=== PATIENT | male | born 1940 | race Caucasian/White ===

== ENCOUNTER 2017-08-01 12:28 | Inpatient (IN) | payer MEDICARE ==
[~2017-08-01] VITALS: Ht 190.5 cm; Wt 130.6 kg
[~2017-08-01 12:28] MED LIST changes: -AZIT250T PO; -CEFP200T PO; -TRAZ-90 PO
[2017-08-01 13:50] VITALS: BP 121/66
[2017-08-01] MEDS ORDERED: TRAZ-90 PO (14:38)
[2017-08-01 15:50] VITALS: BP 120/68
[2017-08-01 19:19] LABS: INFLUENZA A PATIENT NEGATIVE (NEGATIVE); INFLUENZA B PATIENT NEGATIVE (NEGATIVE)
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
[2017-08-01] MEDS ORDERED: ACETAMINOPHEN 325 MG TABLET PO PRN (19:45)
[2017-08-01] MEDS ORDERED: oxyCODONE/APAP 10/325 1 TAB TABLET PO PRN (19:45)
[2017-08-01] MEDS: cefTRIAXone IV Push 1 GM VIAL. IVP SCH (19:48)
[2017-08-01 19:58] VITALS: BP 115/71
[2017-08-01] MEDS: SIMVASTATIN 40 MG TABLET. PO SCH (20:34)
[2017-08-01] MEDS: diazePAM 5 MG TABLET PO SCH (20:34)
[2017-08-01] MEDS: OMEGA-3 FATTY ACIDS/FISH OIL 1,000 MG CAPSULE. PO SCH (20:34)
[2017-08-01] MEDS: LACTOBACILLUS RHAMNOSUS GG 1 CAPSULE. PO SCH (20:34)
[2017-08-01] MEDS: traZODone 100 MG TABLET. PO SCH (20:34)
[2017-08-01 21:07] LABS: BASO % 1 % (0-3); EOS # 0.2 x10^3/uL (0.0-0.7); EOS % 3 % (0-3); HEMATOCRIT 41.8 % (39.0-53.0); HEMOGLOBIN 14.3 g/dL (13.0-17.5); LYMPH # 1.4 x10^3/uL (1.0-4.8); LYMPH % 20 % (24-48); MEAN CORPUSCULAR HEMOGLOBIN 30 pg (25-35); MEAN CORPUSCULAR HGB CONC 34 g/dL (31-37); MEAN CORPUSCULAR VOLUME 88 fL (79-100); MONO # 0.9 x10^3/uL (0.0-1.1); MONO % 13 % (0-9); NEUT # 4.3 x10^3uL (1.8-7.7); NEUT % 63 % (31-73); PLATELET COUNT 144 x10^3/uL (140-400); RED BLOOD COUNT 4.77 x10^6/uL (4.30-5.70); RED CELL DISTRIBUTION WIDTH 14.2 % (11.5-14.5); WHITE BLOOD COUNT 6.7 x10^3/uL (4.0-11.0)
[2017-08-01 21:16] LABS: ALBUMIN 3.7 g/dL (3.4-5.0); ALBUMIN/GLOBULIN RATIO 0.9 (1.0-1.7); CALCIUM 9.1 mg/dL (8.5-10.1); CREATININE 0.9 mg/dL (0.7-1.3); GFR 82.3; POTASSIUM 3.7 mmol/L (3.5-5.1); TOTAL BILIRUBIN 0.2 mg/dL (0.2-1.0); TOTAL PROTEIN 7.9 g/dL (6.4-8.2)
[2017-08-01 22:58] VITALS: BP 134/62
[2017-08-02] MEDS: IPRATRPIUM/ALBUTEROL 0.5/2.5MG 3 ML NEBU. NEB SCH ×5 (00:16→20:00)
[2017-08-02 05:56] VITALS: BP 133/64
[2017-08-02 07:31] LABS: BASO % 0 % (0-3); EOS # 0.1 x10^3/uL (0.0-0.7); EOS % 2 % (0-3); HEMATOCRIT 41.8 % (39.0-53.0); LYMPH # 1.3 x10^3/uL (1.0-4.8); LYMPH % 20 % (24-48); MEAN CORPUSCULAR HEMOGLOBIN 30 pg (25-35); MEAN CORPUSCULAR HGB CONC 34 g/dL (31-37); MEAN CORPUSCULAR VOLUME 88 fL (79-100); MONO # 0.8 x10^3/uL (0.0-1.1); MONO % 12 % (0-9); NEUT # 4.3 x10^3uL (1.8-7.7); NEUT % 66 % (31-73); PLATELET COUNT 143 x10^3/uL (140-400); RED BLOOD COUNT 4.74 x10^6/uL (4.30-5.70); RED CELL DISTRIBUTION WIDTH 14.3 % (11.5-14.5); WHITE BLOOD COUNT 6.6 x10^3/uL (4.0-11.0)
[2017-08-02 07:53] LABS: ALBUMIN 3.6 g/dL (3.4-5.0); ALBUMIN/GLOBULIN RATIO 0.9 (1.0-1.7); CREATININE 0.8 mg/dL (0.7-1.3); GFR 94.2; POTASSIUM 3.5 mmol/L (3.5-5.1); TOTAL BILIRUBIN 0.3 mg/dL (0.2-1.0); TOTAL PROTEIN 7.5 g/dL (6.4-8.2)
[2017-08-02] MEDS: LACTOBACILLUS RHAMNOSUS GG 1 CAPSULE. PO SCH ×2 (08:16→20:17)
[2017-08-02] MEDS: OMEGA-3 FATTY ACIDS/FISH OIL 1,000 MG CAPSULE. PO SCH ×2 (08:16→20:17)
[2017-08-02] MEDS: GEMFIBROZIL 600 MG TABLET. PO SCH ×2 (08:16→18:21)
[2017-08-02] MEDS: diazePAM 5 MG TABLET PO SCH ×3 (08:16→20:17)
[2017-08-02] MEDS: VERAPAMIL SR 120 MG TABLET.ER. PO SCH (08:17)
[2017-08-02] MEDS: LISINOPRIL 20 MG TABLET PO SCH (08:20)
[2017-08-02] MEDS: hydroCHLOROthiazide 25 MG TABLET PO SCH (08:20)
[2017-08-02] MEDS: AZITHROMYCIN 250 MG TABLET. PO SCH (08:20)
[2017-08-02] MEDS: ENOXAPARIN 40 MG/0.4 ML DISP.SYRIN. SQ SCH (08:21)
[2017-08-02 11:00] VITALS: BP 114/54
[2017-08-02 15:25] VITALS: BP 103/56
[2017-08-02 19:43] VITALS: BP 118/60
[2017-08-02] MEDS: cefTRIAXone IV Push 1 GM VIAL. IVP SCH (20:16)
[2017-08-02] MEDS: SIMVASTATIN 40 MG TABLET. PO SCH (20:16)
[2017-08-02] MEDS: traZODone 100 MG TABLET. PO SCH (20:17)
[2017-08-02 22:40] LABS: FECAL OB PT NEGATIVE (NEG)
[2017-08-02 23:07] VITALS: BP 132/66
[2017-08-03] MEDS: IPRATRPIUM/ALBUTEROL 0.5/2.5MG 3 ML NEBU. NEB SCH ×3 (05:55→15:31)
[2017-08-03 06:04] VITALS: BP 118/81
--- NOTE | 2017-08-03 07:13 | PN ---
DATE: 08/02/2017 SUBJECTIVE: The patient was sitting on the edge of the bed, eating his dinner comfortably in no apparent distress. He stated that he is feeling generally better. His cough is much less and he does not have any shortness of breath or chest tightness. Nursing staff did not voice any concern. OBJECTIVE: GENERAL: When we examined him, he looked well and was clearly in no apparent respiratory distress. There is no pallor, jaundice, cyanosis, or thyromegaly. No jugular venous distension. No limb edema. VITAL SIGNS: Her heart rate was 71, blood pressure was 103/56, temperature was 97.8, respiratory rate 20, and oxygen saturation was 93% on 2 liters of oxygen by nasal cannula. HEAD, EYES, EARS, NOSE AND THROAT: Showed normocephalic, atraumatic. NECK: Supple. HEART: Showed normal first and second heart sounds with no gallop, rub or murmur. CHEST: Clear to auscultation. No crepitation or rhonchi. ABDOMEN: Distended, soft, nontender. NEUROLOGIC: He is awake, alert, responding appropriately. All cranial nerves intact. He moves upper extremities without difficulty. Has right below knee amputation. However, he has a prosthesis. LABORATORY DATA: Showed that his influenza A and B were negative. His white cell count was 6600, hemoglobin 14, hematocrit 41, MCV 88 and platelet count of 143,000 with normal manual differential. His chemistry showed a serum sodium 139, potassium 3.5, chloride 98, bicarbonate 35, anion gap of 6, BUN 17, creatinine 0.8, estimated GFR was 94 mL per minute, his glucose 131, calcium was 9. Total bilirubin, AST, ALT, alkaline phosphatase were normal. Total protein was 7.5, albumin 3.6. His chest x-ray showed that he has linear opacities in the left lung base, has mild hyperinflation. PLAN: My plan is to continue with oral Zithromax and IV Zosyn. Continue with DVT prophylaxis. Continue with his other medication. I will repeat his labs tomorrow and if he remains stable, he can be discharged home to continue treatment as an outpatient using oral antibiotic. ASSESSMENT: 1. Community-acquired pneumonia. 2. Acute hypoxic respiratory failure, currently on 2 liters of oxygen, maintaining his oxygen saturation at 93% on 2 liters of oxygen. 3. Hypertension. 4. Hyperlipidemia. 5. Chronic obstructive pulmonary disease. 6. Morbid obesity. 7. Obstructive sleep apnea on CPAP. 8. Anxiety and depression. LISE ROMO MD DR: SHIVA/cody JOB#: [id number] / [id number]
[2017-08-03] MEDS: GEMFIBROZIL 600 MG TABLET. PO SCH (08:27)
[2017-08-03] MEDS: diazePAM 5 MG TABLET PO SCH ×2 (08:27→14:28)
[2017-08-03] MEDS: LISINOPRIL 20 MG TABLET PO SCH (08:28)
[2017-08-03] MEDS: AZITHROMYCIN 250 MG TABLET. PO SCH (08:28)
[2017-08-03] MEDS: hydroCHLOROthiazide 25 MG TABLET PO SCH (08:28)
[2017-08-03] MEDS: OMEGA-3 FATTY ACIDS/FISH OIL 1,000 MG CAPSULE. PO SCH (08:29)
[2017-08-03] MEDS: LACTOBACILLUS RHAMNOSUS GG 1 CAPSULE. PO SCH (08:29)
[2017-08-03] MEDS: ENOXAPARIN 40 MG/0.4 ML DISP.SYRIN. SQ SCH (08:33)
[2017-08-03 09:24] VITALS: BP 118/81
[2017-08-03] MEDS: VERAPAMIL SR 120 MG TABLET.ER. PO SCH (09:24)
[2017-08-03] MEDS ORDERED: CEFP200T PO (15:01)
[2017-08-03] MEDS ORDERED: AZIT250T PO (15:07)
--- NOTE | 2017-08-03 23:58 | DS ---
DATE OF DISCHARGE: 08/03/2017 HOSPITAL COURSE: The patient is a 77-year-old male patient who was admitted with a complaint of cough with greenish yellow sputum, shortness of breath. Her chest x-ray, which showed he has what seemed to be infiltrate in left lung base and was admitted for treatment of community-acquired pneumonia and COPD exacerbation as well as acute hypoxic respiratory failure. On arrival, his oxygen saturation was only 80% on room air. We did start him on IV Rocephin and oral Zithromax, and the patient remained stable throughout his stay in the hospital, the decision was made to discharge him home with home health, and to continue treatment on oral Vantin as well as Zithromax. He developed an episode of diarrhea and we sent stool for C. diff, although the nursing staff did not feel that it is, and we will discharge him home with home health with PT, OT and retirement. PHYSICAL EXAMINATION: GENERAL: When I examined him this afternoon, he was sitting on the edge of the bed comfortably, in no apparent distress. He is extremely anxious, tearful and fearful, but there was no pallor, jaundice, cyanosis, or thyromegaly. No jugular venous distension. No limb edema. VITAL SIGNS: His heart rate was 76, blood pressure 118/81, temperature was 97.8, respiratory rate 20, and oxygen saturation was 93% on 2 liters of oxygen. HEAD, EYES, EARS, NOSE AND THROAT: Normocephalic, atraumatic. NECK: Supple. HEART: Showed normal first and second heart sounds. No gallop, rub or murmur. CHEST: Clear to auscultation. No crepitation or rhonchi. ABDOMEN: Distended, soft, nontender. No guarding or rigidity. No organomegaly. All hernial orifices intact. Bowel sounds normal. NEUROLOGIC: He is awake, alert, responding appropriately. All the cranial nerves intact. He moves all extremities, upper extremities without difficulty, has right below knee amputation, has a prosthesis. LABORATORY DATA: Showed a white cell count of 6600, hemoglobin 14, hematocrit 42, MCV 88 and platelet count of 143,000. His chemistry showed a serum sodium 139, potassium 3.5, chloride 98, bicarbonate 35, anion gap of 6, BUN 17, creatinine 0.8, estimated GFR was 94 mL per minute. His glucose was 131, calcium was 9. Total bilirubin, AST, ALT, alkaline phosphatase were normal. Total protein 7.5, albumin 3.6. DISCHARGE MEDICATIONS: He will be discharged home to continue on following medication: Zithromax 500 mg 1 tablet once a day for 5 more days and cefpodoxime 200 mg twice a day for 7 days. He should continue on all his other medication including diazepam 5 mg 3 times a day, fish oil 1200 mg capsules twice a day, gemfibrozil 600 mg twice a day, hydrochlorothiazide 50 mg once a day, oxycodone/APAP 10/325 one tablet every 6 hours, simvastatin 40 mg at bedtime, trandolapril plus verapamil extended release 4/240 one tablet once a day, trazodone 100 mg at bedtime. FINAL DISCHARGE DIAGNOSES: 1. Community-acquired pneumonia. 2. Chronic obstructive pulmonary disease exacerbation. 3. Acute hypoxic respiratory failure. 4. Hypertension. 5. Hyperlipidemia. 6. Morbid obesity. 7. Obstructive sleep apnea on CPAP. 8. Severe anxiety and depression for which the patient was informed that he probably needs to make an appointment with a psychiatrist for adjustment of his medication. LISE ROMO MD DR: SHIVA/cody JOB#: [id number] / [id number]
== END 2017-08-03 15:40 | disposition home health service (06) | DRG 189 ==
LOC: 1 SOUTH 13:25
PROVIDERS: ADMIT Internal Medicine; ATTEND Internal Medicine
DX: J96.01 Acute respiratory failure with hypoxia (principal); J18.9 Pneumonia, unspecified organism; J44.0 Chronic obstructive pulmonary disease with (acute) lower respiratory infection; E66.01 Morbid (severe) obesity due to excess calories; J44.1 Chronic obstructive pulmonary disease with (acute) exacerbation; E78.5 Hyperlipidemia, unspecified; G47.33 Obstructive sleep apnea (adult) (pediatric); I10 Essential (primary) hypertension; F41.9 Anxiety disorder, unspecified; F32.9 Major depressive disorder, single episode, unspecified; R19.7 Diarrhea, unspecified; Z90.49 Acquired absence of other specified parts of digestive tract; Z89.511 Acquired absence of right leg below knee; Z85.828 Personal history of other malignant neoplasm of skin; Z79.899 Other long term (current) drug therapy; Z79.82 Long term (current) use of aspirin; Z82.49 Family history of ischemic heart disease and other diseases of the circulatory system; Z82.3 Family history of stroke; Z87.891 Personal history of nicotine dependence; Z68.36 Body mass index [BMI] 36.0-36.9, adult
CPT/HCPCS: 36415; 71046; 80053; 82274; 85025; 87324; 87804; 94640; J0456; J0696; J1650; J7620

== ENCOUNTER → 2017-08-01 | Outpatient (CLI) | payer MEDICARE ==
[~2017-08-01] MED LIST: ASPI325T70 PO; AZIT250T PO; CEFP200T PO; DIAZ5TAB4 PO; FISH1200 PO; GEMF600T3 PO; HYDR25TA9 PO; OXYC1TAB9 PO; SIMV40TA3 PO; TRAN1TBM4 PO; TRAZ-90 PO
--- NOTE | 2017-08-01 14:17 | RAD ---
2 views of the Chest 08/01/2017 2:00 AM Indication: COPD Comparison: Chest radiograph 03/24/2013 Findings: No pneumothorax or pleural effusion is identified. There is mild hyperinflation which can be seen with COPD. Linear opacities in the left lung base most likely represent scarring or atelectasis. Infiltrate is less likely. No acute osseous changes are seen. Heart size is within normal limits. Impression: 1. Mild hyperinflation 2. Linear opacities in left lung base. Favor atelectasis or scarring. Mild infiltrate is considered less likely.
== END | disposition home or self-care (01) ==
LOC: PMG 10:46
PROVIDERS: ATTEND Physician Assistant Medical
DX: J44.9 Chronic obstructive pulmonary disease, unspecified (principal)
CPT/HCPCS: 71046

== ENCOUNTER → 2017-10-30 | Outpatient (CLI) | payer MEDICARE ==
[~2017-10-30] MED LIST changes: +AZIT250T PO; +CEFP200T PO; +OXYC-411 PO; -OXYC1TAB9 PO; +TRAZ-90 PO
--- NOTE | 2017-10-30 10:56 | CARD ---
MR#: [id number] Date of Study: 10/30/2017 Ordering Physician: SONA CHAPMAN, Referring Physician: SONA CHAPMAN Tech: MARISOL Antunez APPROVED REPORT EXAM: Two-dimensional and M-mode echocardiogram with Doppler and color Doppler. Other Information Quality : FairHR: 76bpm INDICATION Hypertension/HCVD RISK FACTORS Hypertension 2D DIMENSIONS Left Atrium(2D)4.0 (1.6-4.0cm)IVSd1.3 (0.7-1.1cm) Aortic Root(2D)2.7 (2.0-3.7cm)LVDd6.4 (3.9-5.9cm) LVOT Diameter2.6 (1.8-2.4cm)PWd1.7 (0.7-1.1cm) LVDs4.4 (2.5-4.0cm)FS (%) 31.7 % SV123.7 mlLVEF(%)58.6 (>50%) Aortic Valve AoV Peak Daniel.341.2cm/sAoV VTI84.1cm AO Peak GR.46.6mmHgLVOT Peak Daniel.68.7cm/s LVOT VTI 17.97cmAO Mean GR.28mmHg GEOVANNY (VMAX)1.32sg7CYD (VTI)1.14cm2 AI P 1/2 Orwc905mk Mitral Valve MV E Rcmdmljq874.5cm/sMV DECEL PQBJ103iy MV A Rufzenla026.4cm/sE/A Ratio0.9 Pulmonary Valve PV Peak Xmxqkdsi626.0cm/sPV Peak Grad.4mmHg LEFT VENTRICLE The Left Ventricle is moderately dilated. There is mild to moderate concentric left ventricular hyper trophy. Left ventricle systolic function is normal. The Ejection Fraction is 55-60%. There is normal LV segmental wall motion. Transmitral Doppler flow pattern is Grade I-abnormal relaxation pattern. RIGHT VENTRICLE The right ventricle is normal size. The right ventricular systolic function is normal. ATRIA The left atrium is borderline dilated. The right atrium is borderline dilated. The interatrial septum is intact with no evidence for an atrial septal defect or patent foramen ovale as noted on 2-D or Do ppler imaging. AORTIC VALVE The aortic valve is moderately to severely calcified. Doppler and Color Flow revealed mild to moderat e aortic regurgitation. There is moderate valvular aortic stenosis. There is no aortic valvular veget ation. MITRAL VALVE The mitral valve is moderately thickened. Mitral annular calcification is mild. There is no evidence of mitral valve prolapse. There is no mitral valve stenosis. Doppler and Color Flow revealed no lorenzo l valve regurgitation noted. TRICUSPID VALVE The tricuspid valve leaflets are thickened , but open well. Doppler and Color Flow revealed trace tri cuspid valve regurgitation. There is no tricuspid valve prolapse or vegetation. There is no tricuspid valve stenosis. PULMONIC VALVE The pulmonic valve is not well visualized. Doppler and Color Flow revealed no pulmonic valvular regur gitation. There is no pulmonic valvular stenosis. GREAT VESSELS The aortic root is normal size. The aortic root displays mild sclerocalcific changes of the aortic ro ot and annulus. The IVC is normal in size and collapses >50% with inspiration. PERICARDIAL EFFUSION There is no pleural effusion. There is no evidence of significant pericardial effusion. Critical Notification Critical Value: No <Conclusion> Technically difficult study. Valves poorly visualized. Left ventricle systolic function is normal. The Ejection Fraction is 55-60%. There is normal LV segmental wall motion. There is moderate valvular aortic stenosis. Mild to moderate aortic regurgitation. Trace tricuspid valve regurgitation. There is no evidence of significant pericardial effusion. Signed by : Facundo Bernabe, Electronically Approved : 10/30/2017 10:55:50
== END | disposition home or self-care (01) ==
LOC: ECHO 09:39
PROVIDERS: ATTEND Physician Assistant Medical
DX: Z01.31 Encounter for examination of blood pressure with abnormal findings (principal); I11.9 Hypertensive heart disease without heart failure; I35.0 Nonrheumatic aortic (valve) stenosis; I35.1 Nonrheumatic aortic (valve) insufficiency; E78.5 Hyperlipidemia, unspecified; J44.1 Chronic obstructive pulmonary disease with (acute) exacerbation
CPT/HCPCS: 93306

== ENCOUNTER 2017-12-03 11:53 | Emergency (ER) | payer MEDICARE ==
[~2017-12-03] VITALS: Ht 190.5 cm; Wt 130.6 kg
--- NOTE | 2017-12-03 12:37 | PHYS DOC ---
Past History Past Medical History: Anxiety, COPD, Diabetes, Hypertension Alcohol Use: None Drug Use: None Adult General Chief Complaint Chief Complaint: KNEE INJURY HPI HPI Patient is a 77-year-old male who presents for evaluation of left knee pain after a fall 2 days ago. The patient tripped and fell onto the knee and is complaining of 2 out of 10 pain. He states he did not want to come here but his convinced him to come. He says that when he puts weight on the knee has slightly increased pain but not significantly worse. He is status post right AKA and has a prosthesis. He also has a wound dressing to the left anterior alcala and states that this was from a procedure to do vein grafting. He has no pain or combination this area. His pain is to the medial left knee. He is alert and oriented 4, calm, and appears to be in no distress. Review of Systems Review of Systems Constitutional: Denies fever or chills [] Eyes: Denies change in visual acuity, redness, or eye pain [] HENT: Denies nasal congestion or sore throat [] Respiratory: Denies cough or shortness of breath [] Cardiovascular: No additional information not addressed in HPI [] GI: Denies abdominal pain, nausea, vomiting, bloody stools or diarrhea [] : Denies dysuria or hematuria [] Musculoskeletal: Denies back pain + left medial knee pain Integument: Denies rash or skin lesions [] Neurologic: Denies headache, focal weakness or sensory changes [] Endocrine: Denies polyuria or polydipsia [] All other systems were reviewed and found to be within normal limits, except as documented in this note. Allergies Allergies Allergies Coded Allergies Type Severity Reaction Last Updated Verified No Known Drug Allergies 10/23/13 No Physical Exam Physical Exam Constitutional: Well developed, well nourished, no acute distress, non-toxic appearance. [] HENT: Normocephalic, atraumatic, bilateral external ears normal, oropharynx moist, no oral exudates, nose normal. [] Eyes: PERRLA, EOMI, conjunctiva normal, no discharge. [] Neck: Normal range of motion, no tenderness, supple, no stridor. [] Cardiovascular:Heart rate regular rhythm, no murmur [] Lungs & Thorax: Bilateral breath sounds clear to auscultation [] Abdomen: Bowel sounds normal, soft, no tenderness, no masses, no pulsatile masses. [] Skin: Warm, dry, no erythema, no rash. [] Back: No tenderness, no CVA tenderness. [] Extremities: No tenderness, no cyanosis, no clubbing, ROM intact, no edema. [] ttp over left medial knee, no effusion/swelling/deformity/ecchymosis/laceration , distally CMS intact, left anterior lower leg with surgical wound (without complication) from recent vein harvesting Neurologic: Alert and oriented X 3, normal motor function, normal sensory function, no focal deficits noted. [] Psychologic: Affect normal, judgement normal, mood normal. [] Current Patient Data Vital Signs Vital Signs Date Time Temp Pulse Resp B/P (MAP) Pulse Ox O2 Delivery O2 Flow Rate FiO2 12/03/17 12:11 98.2 85 20 94 Nasal Cannula 2.0 EKG EKG [] Radiology/Procedures Radiology/Procedures [address] [address] IMAGING REPORT Signed PATIENT: RADHA WESLEY ACCOUNT: [id number] : 1940 LOCATION: ER AGE: 77 SEX: M EXAM STATUS: REG ER ORD. PHYSICIAN: DIANELYS ELLISON DO REASON: fall, left knee pain PROCEDURE: KNEE LEFT 3V EXAM: Left knee, 3 views. HISTORY: Pain. COMPARISON: None. FINDINGS: Frontal, lateral and oblique views of the left knee are obtained. There is mild medial and patellofemoral compartment joint space narrowing, patellofemoral subchondral sclerosis and cyst formation and mild tricompartmental spurring. There is no fracture, dislocation or subluxation. There is a small left knee effusion. There are vascular calcifications. There are vascular clips within the distal thigh. IMPRESSION: 1. 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 2. Small left knee effusion. Electronically signed by: Sara Jules MD (12/03/2017 12:41 PM) [facility] DICTATED AND SIGNED BY: SARA JULES MD DATE: 12/03/17 3290 CC: DIANELYS ELLISON DO; SONA CHAPMAN ~ Course & Med Decision Making Course & Med Decision Making Pertinent Labs and Imaging studies reviewed. (See chart for details) @1245 - patient updated on imaging results. He has no additional complaints and wants to go home. He appears comfortable and stable. Advised patient to follow up with his PCP in the next 3-5 days. Also advised patient to wears home oxygen regularly. Dragon Disclaimer Dragon Disclaimer This electronic medical record was generated, in whole or in part, using a voice recognition dictation system. Departure Departure: Impression: Primary Impression: Left knee injury Disposition: HOME, SELF-CARE Condition: STABLE Referrals: SONA CHPAMAN (PCP) Patient Instructions: Knee Pain, Knee Replacement, Preparing For Additional Instructions: Take Tylenol or ibuprofen at home for pain relief. He can apply ice 15 minutes on and then 15 minutes off to help reduce swelling. With your doctor in the next 3-5 days. Return to the ER for new or worsening symptoms. Keep the Rex wrap on as provided. DIANELYS ELLISON DO Dec 03, 2017 12:37
--- NOTE | 2017-12-03 12:45 | RAD ---
EXAM: Left knee, 3 views. HISTORY: Pain. COMPARISON: None. FINDINGS: Frontal, lateral and oblique views of the left knee are obtained. There is mild medial and patellofemoral compartment joint space narrowing, patellofemoral subchondral sclerosis and cyst formation and mild tricompartmental spurring. There is no fracture, dislocation or subluxation. There is a small left knee effusion. There are vascular calcifications. There are vascular clips within the distal thigh. IMPRESSION: 1. 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 2. Small left knee effusion. Electronically signed by: Sara Aguilera MD (12/03/2017 12:41 PM) [facility]
[2017-12-03 13:00] VITALS: BP 105/50
== END 2017-12-03 13:00 | disposition home or self-care (01) ==
LOC: ER 11:53
DX: S89.92XA Unspecified injury of left lower leg, initial encounter (principal); F41.9 Anxiety disorder, unspecified; J44.9 Chronic obstructive pulmonary disease, unspecified; E11.9 Type 2 diabetes mellitus without complications; I10 Essential (primary) hypertension; W01.0XXA Fall on same level from slipping, tripping and stumbling without subsequent striking against object, initial encounter; Y93.89 Activity, other specified; Y99.8 Other external cause status; Y92.89 Other specified places as the place of occurrence of the external cause
CPT/HCPCS: 73562; 99284-25

== ENCOUNTER → 2018-06-05 | Outpatient (CLI) | payer MEDICARE ==
[~2018-06-05] MED LIST changes: -GEMF600T3 PO; +GEMF600T8 PO; +HYDR-2145 PO; -HYDR25TA9 PO; +TRAZ-86 PO; -TRAZ-90 PO
--- NOTE | 2018-06-05 14:32 | RAD ---
PA and lateral chest x-ray compared to similar exam dated August 01, 2017 for shortness of breath. FINDINGS: There are patchy opacities in the left lung base which are slightly more conspicuous than on the prior examination and could reflect pneumonic infiltrate. No pleural effusions. Cardiomediastinum is grossly unremarkable. IMPRESSION: 1. Patchy airspace infiltrates in the left lower lung. Electronically signed by: Medhat Drake MD (06/05/2018 2:28 PM) [id number]
== END | disposition home or self-care (01) ==
LOC: RAD 11:14
PROVIDERS: ATTEND Physician Assistant Medical
DX: J44.9 Chronic obstructive pulmonary disease, unspecified (principal); R91.8 Other nonspecific abnormal finding of lung field
CPT/HCPCS: 71046